=== PATIENT | female | born 1970 | race Hispanic/Latino ===

== ENCOUNTER 2021-06-16 21:58 | Observation (INO) | payer SELFPAY ==
[~2021-06-16] VITALS: Ht 162.6 cm; Wt 94.3 kg
[2021-06-16] MEDS ORDERED: KETOROLAC TROMETHAMINE 30 MG/ML VIAL IV STA (23:35)
[2021-06-16] MEDS ORDERED: CYCLOBENZAPRINE HCL 10 MG TAB PO ONE (23:45)
[2021-06-17] MEDS ORDERED: CYCLOBENZAPRINE HCL 10 MG TAB ONE (00:03)
[2021-06-17] MEDS ORDERED: KETOROLAC TROMETHAMINE 30 MG/ML VIAL ONE (00:04)
[2021-06-17] MEDS ORDERED: ASPIRIN 81 MG CHEW TAB PO ONE ×2 (01:30→02:30)
[2021-06-17] MEDS ORDERED: SODIUM CHLORIDE FLUSH 10 ML SYR INJ PRN (02:30)
[2021-06-17] MEDS ORDERED: NITROGLYCERIN 0.4 MG SUBL SL PRN (02:30)
[2021-06-17] MEDS ORDERED: ONDANSETRON HCL INJ 2MG/ML 2ML 2 MG/ML VIAL IV PRN (02:30)
[2021-06-17] MEDS ORDERED: ASPIRIN 81 MG CHEW TAB ONE (03:16)
[2021-06-17 08:22] VITALS: BP 143/80
[2021-06-17 08:56] VITALS: BP 143/80
[2021-06-17 11:39] LABS: CREATINE KINASE 92 IU/L (29-168)
[2021-06-17 11:47] VITALS: BP 133/69
== END 2021-06-17 12:21 | disposition home or self-care (01) ==
LOC: FSED 22:10 → ERHOLD 06-17 02:24 → MED/SURG3 06-17 07:31
PROVIDERS: ADMIT Internal Medicine; ATTEND Internal Medicine
DX: R07.89 Other chest pain (principal); M54.89 Other dorsalgia; R94.31 Abnormal electrocardiogram [ECG] [EKG]; Z20.822 Contact with and (suspected) exposure to COVID-19
CPT/HCPCS: 36415; 71046; 80053; 82550; 82553 ×2; 84484 ×2; 85025; 93005 ×2; 99284; G0378; J1885; U0002

== ENCOUNTER 2022-08-09 00:29 | Emergency (ER) | payer OTHER ==
[~2022-08-09] VITALS: Ht 162.6 cm; Wt 94.3 kg
[2022-08-09] MEDS ORDERED: TRAMADOL HCL 50 MG TAB PO STA (00:39)
[2022-08-09] MEDS ORDERED: TRAMADOL HCL 50 MG TAB ONE (00:44)
[2022-08-09] MEDS ORDERED: Morphine 4mg INJECTION 4 MG/ML INJ IM STA (01:13)
[2022-08-09] MEDS ORDERED: ONDANSETRON HCL INJ 2MG/ML 2ML 2 MG/ML VIAL ONE (01:43)
[2022-08-09] MEDS ORDERED: ONDANSETRON HCL INJ 2MG/ML 2ML 2 MG/ML VIAL IV STA (01:45)
[2022-08-09] MEDS ORDERED: IOPAMIDOL 370 MG/ML 100 ML INFUS..BTL INJ ONE (02:31)
[2022-08-09] MEDS ORDERED: PREDNISONE20 MG PO (04:10)
[2022-08-09] MEDS ORDERED: ACETAMINOPHEN-1 EAC4 PO (04:10)
[2022-08-09 04:22] LABS: BASOPHILS % 0.2 % (0.0-1.0); HEMATOCRIT 38.6 % (34.2-44.1); HEMOGLOBIN 12.6 g/dL (12.0-16.0); LYMPHOCYTES % 7.2 % (18.0-39.1); MEAN CORPUSCULAR HEMOGLOBIN 27.5 pg (28-32); MEAN CORPUSCULAR HGB CONC 32.6 g/dL (31-35); MEAN CORPUSCULAR VOLUME 84.1 fL (81-99); MONOCYTES # (AUTO) 1.3 (0.2-0.8); MONOCYTES % 9.6 % (4.4-11.3); NEUTROPHILS # (AUTO) 11.3 (2.1-6.9); NEUTROPHILS % 82.6 % (38.7-80.0); PLATELET COUNT 309 x10e3/uL (140-360); RED BLOOD COUNT 4.59 x10e6/uL (3.6-5.1); RED CELL DISTRIBUTION WIDTH 12.7 % (11.7-14.4)
[2022-08-09 04:44] VITALS: BP 140/75; PULSE 75; RESP 16; TEMP 98.9; O2SAT 99
[2022-08-09 04:59] LABS: ALKALINE PHOSPHATASE 67 IU/L (40-150)
[2022-08-09 05:15] LABS: ALANINE AMINOTRANSFERASE 34 IU/L (0-55); ALBUMIN 3.9 g/dL (3.5-5.0); BLOOD UREA NITROGEN 11 mg/dL (7-26); BUN/CREATININE RATIO 15 (6-25); CALCIUM 9.2 mg/dL (8.4-10.2); CARBON DIOXIDE 19 mmol/L (22-29); CHLORIDE 102 mmol/L (98-107); CREATINE KINASE 223 IU/L (29-168); CREATININE, SERUM 0.71 mg/dL (0.57-1.11); GLUCOSE 183 mg/dL (74-118); SODIUM 136 mmol/L (136-145)
== END 2022-08-09 04:35 | disposition home or self-care (01) ==
LOC: ER 00:45
DX: M25.511 Pain in right shoulder (principal); M54.12 Radiculopathy, cervical region; X50.0XXA Overexertion from strenuous movement or load, initial encounter; Y92.89 Other specified places as the place of occurrence of the external cause
CPT/HCPCS: 36415; 71260; 72125; 80053; 82550; 82553; 84484; 85025; 93005; 99284; J2270; J2405; Q9967

== ENCOUNTER 2023-10-15 05:30 | Emergency (ER) | payer OTHER ==
[~2023-10-15] VITALS: Ht 162.6 cm; Wt 94.3 kg
[~2023-10-15 05:30] MED LIST: ACETAMINOPHEN-1 EAC4 PO; PREDNISONE20 MG PO; ULTRAM 50MG50 MG PO
[2023-10-15 05:43] VITALS: TEMP 98.8
[2023-10-15] MEDS ORDERED: KETOROLAC TROMETHAMINE 30 MG/ML VIAL ONE (06:32)
[2023-10-15] MEDS ORDERED: ORPHENADRINE CITRATE 30 MG/ML VIAL ONE (06:32)
[2023-10-15] MEDS: KETOROLAC TROMETHAMINE 30 MG/ML VIAL IM STA (06:33)
[2023-10-15] MEDS: ORPHENADRINE CITRATE 30 MG/ML VIAL IM ONE (06:34)
[2023-10-15 06:36] VITALS: PULSE 89; RESP 19
[2023-10-15] MEDS ORDERED: METHOCARBAMOL750 MG PO (07:02)
[2023-10-15 07:07] VITALS: BP 123/80; PULSE 68; RESP 17; TEMP 98.3; O2SAT 98
== END 2023-10-15 07:21 | disposition home or self-care (01) ==
LOC: ER 05:36
DX: S76.911A Strain of unspecified muscles, fascia and tendons at thigh level, right thigh, initial encounter (principal); X50.9XXA Other and unspecified overexertion or strenuous movements or postures, initial encounter; I10 Essential (primary) hypertension; E78.5 Hyperlipidemia, unspecified; Z79.899 Other long term (current) drug therapy; Z79.52 Long term (current) use of systemic steroids
CPT/HCPCS: 99282; J1885; J2360